=== PATIENT | female | born 1980 | race Caucasian/White ===

== ENCOUNTER 2017-12-21 11:12 | Emergency (ER) | payer BC ==
[2017-12-21 13:19] VITALS: BP 133/73
--- NOTE | 2017-12-21 14:45 | UC ---
FLU HPI - HPI Summary HPI Summary: This is an otherwise healthy 37 yo female who presents with 4d of fever, malaise , body aches and mild cough. No n/v. No rash. 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 Fevers have been 101-102F and manageable with ibuprofen. No CP or SOB. - History of Current Complaint Chief Complaint: UCGeneralIllness Stated Complaint: FLU SX'S Time Seen by Provider: 12/21/17 13:56 Hx Last Menstrual Period: one year Pain Intensity: 0 - Allergy/Home Medications Allergies/Adverse Reactions: Allergies Allergy/AdvReac Type Severity Reaction Status Date / Time No Known Allergies Allergy Verified 12/21/17 13:19 Home Medications: Home Medications Ibuprofen TAB* [Motrin TAB* 800 MG] 800 mg PO ONCE 12/21/17 [History Confirmed 12/21/17] PMH/Surg Hx/FS Hx/Imm Hx Previously Healthy: Yes - Surgical History Surgical History: Yes Surgery Procedure, Year, and Place: ectopic , removal of right tube & ovary - Family History Known Family History: Positive: None - Social History Alcohol Use: None Substance Use Type: None Smoking Status (MU): Never Smoked Tobacco Review of Systems Constitutional: Fever, Chills Skin: Negative Eyes: Negative ENT: Negative Respiratory: Cough Cardiovascular: Negative Gastrointestinal: Negative Genitourinary: Negative Motor: Negative Neurovascular: Negative Musculoskeletal: Negative Neurological: Negative Psychological: Negative Is Patient Immunocompromised?: No All Other Systems Reviewed And Are Negative: Yes Physical Exam Triage Information Reviewed: Yes Appearance: Ill-Appearing Vital Signs: Initial Vital Signs Temp 99.6 F 12/21/17 13:15 Pulse 80 12/21/17 13:15 Resp 14 12/21/17 13:15 BP 133/73 12/21/17 13:15 Pulse Ox 100 12/21/17 13:15 Vital Signs Reviewed: Yes ENT: Positive: Normal ENT inspection Dental Exam: Normal Neck: Positive: Supple, Enlarged Nodes @ - mild anterior cervical Respiratory: Positive: Lungs clear, Normal breath sounds. Negative: Crackles, Rhonchi, Wheezing Cardiovascular: Positive: RRR, No Murmur Abdominal Exam: Normal Abdomen Description: Positive: Nontender Musculoskeletal Exam: Normal Neurological Exam: Normal Psychological Exam: Normal Skin Exam: Normal Diagnostics - Laboratory Diagnostic Studies Completed/Ordered: Influenza - +A Flu Course/Dx - Course Course Of Treatment: This is an otherwise healthy 37 yo female who presents with flu-like symptoms who tested positive for influenza A. She is outside of the window of benefit for Tamiflu and is not considered high risk - Differential Dx/Diagnosis Differential Diagnosis/HQI/PQRI: Influenza, Pneumonia, Upper Respiratory Infection Provider Diagnoses: 1. Influenza A infection Discharge - Discharge Plan Condition: Stable Disposition: HOME Patient Education Materials: Influenza (DC) Referrals: Tiara Cornejo MD [Primary Care Provider] - If Needed Additional Instructions: Instructions: 1. You are positive for influenza 2. Avoid individuals that are at risk for complications from the flu such as the elderly, infants, women and chronically ill 3. Continue to treat your fevers
== END 2017-12-21 14:43 | disposition home or self-care (01) ==
LOC: UCCORT 11:12
DX: J10.1 Influenza due to other identified influenza virus with other respiratory manifestations (principal)
CPT/HCPCS: 87502; 99211; G0463

== ENCOUNTER 2018-12-19 19:27 | Emergency (ER) | payer BC ==
[2018-12-19 20:11] VITALS: BP 119/79
--- NOTE | 2018-12-19 20:23 | UC ---
UC General HPI - HPI Summary HPI Summary: PT C/O A 1 MONTH HX SINUS PAIN, PRESSURE, CONGESTION AND GREEN DISCHARGE. IT IS NOT RESOLVING AND WORSENS WITH LEANING FORWARD. NO SELF TX. - History of Current Complaint Chief Complaint: UCGeneralIllness Stated Complaint: SINUS COMPLAINT Time Seen by Provider: 12/19/18 20:12 Hx Obtained From: Patient Hx Last Menstrual Period: 11/30/18 Onset/Duration: Gradual Onset Timing: Constant Pain Intensity: 0 Associated Signs & Symptoms: Positive: Headache - FRONTAL - Allergy/Home Medications Allergies/Adverse Reactions: Allergies Allergy/AdvReac Type Severity Reaction Status Date / Time No Known Allergies Allergy Verified 12/19/18 20:11 PMH/Surg Hx/FS Hx/Imm Hx Previously Healthy: Yes - Surgical History Surgical History: Yes Surgery Procedure, Year, and Place: ectopic , removal of right tube & ovary - Family History Known Family History: Positive: None - Social History Alcohol Use: Rare Substance Use Type: None Smoking Status (MU): Never Smoked Tobacco Review of Systems All Other Systems Reviewed And Are Negative: Yes Constitutional: Positive: Negative Skin: Positive: Negative Eyes: Positive: Negative ENT: Positive: Nasal Discharge, Sinus Congestion, Sinus Pain/Tenderness Respiratory: Positive: Negative Cardiovascular: Positive: Negative Gastrointestinal: Positive: Negative Genitourinary: Positive: Negative Motor: Positive: Negative Neurovascular: Positive: Negative Musculoskeletal: Positive: Negative Neurological: Positive: Headache Psychological: Positive: Negative Physical Exam Triage Information Reviewed: Yes Appearance: Well-Appearing Vital Signs: Initial Vital Signs Temp 98.6 F 12/19/18 20:07 Pulse 93 12/19/18 20:07 Resp 15 12/19/18 20:07 BP 119/79 12/19/18 20:07 Pulse Ox 100 12/19/18 20:07 Vital Signs Reviewed: Yes Eyes: Positive: Conjunctiva Clear ENT: Positive: Pharynx normal, Nasal congestion, TMs normal, Sinus tenderness. Negative: Nasal drainage Neck: Positive: Supple, Nontender, No Lymphadenopathy Respiratory: Positive: Lungs clear, Normal breath sounds Cardiovascular: Positive: RRR, No Murmur Abdomen Description: Positive: Nontender, No Organomegaly, Soft Bowel Sounds: Positive: Present Musculoskeletal: Positive: ROM Intact Neurological: Positive: Alert Psychological: Positive: Age Appropriate Behavior Skin Exam: Normal Skin: Negative: Rashes Course/Dx - Differential Dx - Multi-Symptom Differential Diagnoses: Other - URI, ALLERGIES, SINUSITIS - Diagnoses Provider Diagnosis: Sinusitis Discharge - Sign-Out/Discharge Documenting (check all that apply): Patient Departure All imaging exams completed and their final reports reviewed: No Studies - Discharge Plan Condition: Stable Disposition: HOME Prescriptions: Amoxicillin/Clavulanate TAB* [Augmentin TAB 875*] 875 mg PO BID 10 Days #20 tab Patient Education Materials: Sinusitis (ED) Referrals: Tiara Cornejo MD [Primary Care Provider] - 7 Days Additional Instructions: CONSIDER A NASAL SALINE FLUSH AND FLONASE PER LABELS. - Billing Disposition and Condition Condition: STABLE Disposition: Home - Attestation Statements Provider Attestation: Per institutional requirements, I have reviewed the chart, however, I was not consulted specifically or made aware of this patient by the midlevel provider. I did not personally evaluate, interact with , or disposition this patient
[2018-12-19] MEDS ORDERED: Amoxicillin/Clavulanate TAB* 875 MG PO ONE (20:38)
== END 2018-12-19 20:45 | disposition home or self-care (01) ==
LOC: UCCORT 19:27
DX: J32.9 Chronic sinusitis, unspecified (principal)
CPT/HCPCS: 99212; A9270-GY; G0463